=== PATIENT | female | born 1985 | race Two or more races ===

== ENCOUNTER 2018-08-03 15:33 | Emergency (ER) | payer OTHER ==
[2018-08-03 15:39] VITALS: BMI 23.2
[2018-08-03] MEDS ORDERED: SODIUM CHLORIDE 1,000 ML IV STA (16:20)
[2018-08-03] MEDS ORDERED: ONDANSETRON 4 MG/2 ML VIAL IVPUSH ONE (16:20)
[2018-08-03] MEDS ORDERED: KETOROLAC TROMETHAMINE 30 MG/1 ML VIAL IVPUSH STA (16:21)
[2018-08-03] MEDS ORDERED: ONDANSETRON 4 MG/2 ML VIAL ONE (16:28)
[2018-08-03] MEDS ORDERED: KETOROLAC TROMETHAMINE 30 MG/1 ML VIAL ONE (16:28)
[2018-08-03 17:10] LABS: BASO % 0.4 % (0-2.0); EOS % 0.1 % (0-4.5); HEMATOCRIT 36.8 % (32.4-45.2); HEMOGLOBIN 13.2 GM/dL (10.7-15.3); MCH 33.3 pg (25.7-33.7); MEAN CELL VOLUME 92.6 fl (80-96); MONO % 5.3 % (3.8-10.2); NEUT % 73.2 % (42.8-82.8); PLATELET COUNT 135 K/MM3 (134-434); RBC 3.98 M/mm3 (3.60-5.2); WHITE BLOOD COUNT 8.6 K/mm3 (4.0-10.0)
--- NOTE | 2018-08-03 17:32 | PDOC ---
History of Present Illness - General Chief Complaint: Pain Stated Complaint: ABD/VOMITING Time Seen by Provider: 08/03/18 15:53 History Source: Patient Exam Limitations: No Limitations - History of Present Illness Travel History: No Initial Comments: 08/03/18 17:07 32-year-old female presents to the ED with complaints of upper periumbilical cramping along with nausea and vomiting for one week. Patient also states had a fever of 102.3 last night. Patient states 3 weeks ago taken the plan B pill secondary to positive of 5 weeks. Patient denies any complications from taking the pill. Patient has no urinary complaints, complaints of back pain , headache, throat pain, recent travel, recent illness. 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 Timing/Duration: reports: intermittent Quality: reports: mild, cramping Abdominal Pain Onset Location: reports: periumbilical (upper) Pain Radiation: reports: no radiation Activities at Onset: reports: none Aggravating Factors: improves with: None Alleviating Factors: improves with: None Past History - Travel Traveled outside of the country in the last 30 days: No Close contact w/someone who was outside of country & ill: No - Past Medical History Allergies/Adverse Reactions: Allergies Allergy/AdvReac Type Severity Reaction Status Date / Time amoxicillin Allergy Verified 08/03/18 15:39 Home Medications: Ambulatory Orders NK [No Known Home Medication] 08/03/18 COPD: No - Suicide/Smoking/Psychosocial Hx Smoking History: Never smoked Patient Lives Alone: No Lives with/in: spouse/SO Review of Systems - Review of Systems Able to Perform ROS?: Yes Constitutional: Yes: Weakness HEENTM: No: Symptoms Reported Respiratory: No: Symptoms reported Cardiac (ROS): No: Symptoms Reported ABD/GI: Yes: Diarrhea, Nausea, Poor Appetite, Poor Fluid Intake, Vomiting, Abdominal cramping : No: Symptoms Reported Musculoskeletal: No: Symptoms Reported Integumentary: No: Symptoms Reported Neurological: No: Symptoms reported Hematologic/Lymphatic: No: Symptoms Reported *Physical Exam - Vital Signs Last Vital Signs Temp Pulse Resp BP Pulse Ox 97.9 F 74 18 102/70 99 08/03/18 15:37 08/03/18 15:37 08/03/18 15:37 08/03/18 15:37 08/03/18 15:37 - Physical Exam General Appearance: Yes: Nourished, Appropriately Dressed. No: Apparent Distress HEENT: positive: EOMI, JEREMIAH, TMs Normal, Pharynx Normal. negative: Pale Conjunctivae Neck: positive: Supple Respiratory/Chest: positive: Lungs Clear, Normal Breath Sounds. negative: Respiratory Distress, Accessory Muscle Use Cardiovascular: positive: Regular Rhythm, Regular Rate. negative: Murmur Gastrointestinal/Abdominal: positive: Soft, Tenderness (upper periumbi) Musculoskeletal: negative: CVA Tenderness Extremity: positive: Normal Capillary Refill Integumentary: positive: Normal Color, Warm, Moist Neurologic: positive: Motor Strength 5/5 (ambulatory) Moderate Sedation - Procedure Monitoring Vital Signs: Procedure Monitoring Vital Signs Temperature 97.9 F 08/03/18 15:37 Pulse Rate 74 08/03/18 15:37 Respiratory Rate 18 08/03/18 15:37 Blood Pressure 102/70 08/03/18 15:37 O2 Sat by Pulse Oximetry (%) 99 08/03/18 15:37 ED Treatment Course - LABORATORY CBC & Chemistry Diagram: 08/03/18 16:58 08/03/18 16:58 - ADDITIONAL ORDERS Additional order review: 08/03/18 16:58 RBC 3.98 MCV 92.6 MCHC 36.0 RDW 13.0 MPV 8.0 Neutrophils % 73.2 Lymphocytes % 21.0 Monocytes % 5.3 Eosinophils % 0.1 Basophils % 0.4 - Medications Given in the ED: ED Medications Discontinued Medications Generic Name Dose Route Start Last Admin Trade Name Freq PRN Reason Stop Dose Admin Sodium Chloride 1,000 mls @ 1,000 mls/hr 08/03/18 16:20 08/03/18 16:40 Normal Saline - IV 08/03/18 17:19 1,000 mls/hr ASDIR STA Administration Ketorolac Tromethamine 30 mg 08/03/18 16:21 08/03/18 16:40 Toradol Injection - IVPUSH 08/03/18 16:22 30 mg ONCE STA Administration Ondansetron HCl 4 mg 08/03/18 16:20 08/03/18 16:40 Zofran Injection IVPUSH 08/03/18 16:21 4 mg ONCE ONE Administration Medical Decision Making - Medical Decision Making 08/03/18 17:20 CC: upper abd pain with n/v d x 1 week, sub fever of 102.3 yesterday, no meds taken Exam: upper periumbilical tenderness, no ruq tenderness Plan: labs, urine, ivf, toradol and zofran 08/03/18 17:42 Laboratory Tests 08/03/18 08/03/18 16:58 16:58 WBC 8.6 Hgb 13.2 Hct 36.8 Neutrophils % 73.2 Sodium 138 Potassium 4.0 Chloride 108 H Carbon Dioxide 24 Anion Gap 6 L BUN 10 Creatinine 0.5 L Random Glucose 70 L Calcium 8.4 L Magnesium 2.2 Total Bilirubin 0.5 AST 14 L ALT 17 Alkaline Phosphatase 45 Total Protein 6.4 Albumin 3.6 Lipase 158 08/03/18 17:43 d5 ns ordered for glucose of 70. pt states feeling somewhat better. urine collection pending
[2018-08-03 17:35] LABS: ALBUMIN 3.6 g/dl (3.4-5.0); ALK PHOS 45 U/L (45-117); ANION GAP 6 MMOL/L (8-16); BILIRUBIN,TOTAL 0.5 mg/dL (0.2-1); BLOOD UREA NITROGEN 10 mg/dL (7-18); CALCIUM 8.4 mg/dL (8.5-10.1); CHLORIDE 108 mmol/L (98-107); CO2 24 mmol/L (21-32); CREATININE 0.5 mg/dL (0.55-1.3); GLUCOSE,RANDOM 70 mg/dL (74-106); LIPASE 158 U/L (73-393); MAGNESIUM 2.2 mg/dL (1.8-2.4); SGOT/AST 14 U/L (15-37); SGPT/ALT 17 U/L (13-61); SODIUM 138 mmol/L (136-145); TOT PROT 6.4 g/dl (6.4-8.2)
[2018-08-03] MEDS ORDERED: DEXTROSE 5%-NORMAL SALINE 1,000 ML IV ONE (17:42)
[2018-08-03 18:59] LABS: HCG,QUALITATIVE URINE Positive
[2018-08-03 19:01] LABS: URINE APPEARANCE SLCLOUDY; URINE BILIRUBIN NEGATIVE (<2.0 mg/dL); URINE COLOR STRAW; URINE GLUCOSE (UA) 3+ (NEGATIVE); URINE KETONE 1+ (NEGATIVE); URINE LEUK ESTERASE 1+ (NEGATIVE); URINE NITRITE NEGATIVE (NEGATIVE); URINE PROTEIN NEGATIVE (NEGATIVE); URINE UROBILINOGEN NEGATIVE mg/dL (0.2-1.0)
[2018-08-03 19:12] LABS: EPI CELLS MODERATE /HPF (FEW)
[2018-08-03] MEDS ORDERED: MAG HYDROX/AL HYDROX/SIMETH 30 ML UNIT-DOSE CUP PO ONE (19:26)
[2018-08-03] MEDS ORDERED: FAMOTIDINE 20 MG/50 ML IVPB 20 MG/50 ML MG IVPB ONE ×2 (19:26→20:13)
[2018-08-03] MEDS ORDERED: MAG HYDROX/AL HYDROX/SIMETH 30 ML UNIT-DOSE CUP ONE (20:13)
--- NOTE | 2018-08-03 20:50 | PDOC ---
*Physical Exam - Vital Signs Last Vital Signs Temp Pulse Resp BP Pulse Ox 97.9 F 74 18 102/70 99 08/03/18 15:37 08/03/18 15:37 08/03/18 15:37 08/03/18 15:37 08/03/18 15:37 ED Treatment Course - LABORATORY CBC & Chemistry Diagram: 08/03/18 16:58 08/03/18 16:58 - ADDITIONAL ORDERS Additional order review: Laboratory Results 08/03/18 08/03/18 18:40 16:58 Sodium 138 Potassium 4.0 Chloride 108 H Carbon Dioxide 24 Anion Gap 6 L BUN 10 Creatinine 0.5 L Creat Clearance w eGFR > 60 Random Glucose 70 L Calcium 8.4 L Magnesium 2.2 Total Bilirubin 0.5 AST 14 L ALT 17 Alkaline Phosphatase 45 Total Protein 6.4 Albumin 3.6 Lipase 158 Urine Color Straw Urine Appearance Slcloudy Urine pH 6.0 Ur Specific [place] 1.014 Urine Protein Negative Urine Glucose (UA) 3+ H Urine Ketones 1+ H Urine Blood 1+ H Urine Nitrite Negative Urine Bilirubin Negative Urine Urobilinogen Negative Ur Leukocyte Esterase 1+ H Urine WBC (Auto) 11 Urine RBC (Auto) 2 Ur Epithelial Cells Moderate Urine HCG, Qual Positive 08/03/18 16:58 RBC 3.98 MCV 92.6 MCHC 36.0 RDW 13.0 MPV 8.0 Neutrophils % 73.2 Lymphocytes % 21.0 Monocytes % 5.3 Eosinophils % 0.1 Basophils % 0.4 - Medications Given in the ED: ED Medications Discontinued Medications Generic Name Dose Route Start Last Admin Trade Name Freq PRN Reason Stop Dose Admin Al Hydroxide/Mg Hydroxide 30 ml 08/03/18 19:26 08/03/18 20:18 Mylanta Oral Suspension - PO 08/03/18 19:27 30 ml ONCE ONE Administration Sodium Chloride 1,000 mls @ 1,000 mls/hr 08/03/18 16:20 08/03/18 16:40 Normal Saline - IV 08/03/18 17:19 1,000 mls/hr ASDIR STA Administration Dextrose/Sodium Chloride 1,000 mls @ 1,000 mls/hr 08/03/18 17:42 08/03/18 18: 00 D5-Ns - IV 08/03/18 18:41 1,000 mls/hr ONCE ONE Administration Famotidine/Sodium Chloride 20 mg in 50 mls @ 100 mls/hr 08/03/18 19:26 20:18 Pepcid 20 Mg Premixed Ivpb - IVPB 08/03/18 19:55 100 mls/hr ONCE ONE Administration Ketorolac Tromethamine 30 mg 08/03/18 16:21 08/03/18 16:40 Toradol Injection - IVPUSH 08/03/18 16:22 30 mg ONCE STA Administration Ondansetron HCl 4 mg 08/03/18 16:20 08/03/18 16:40 Zofran Injection IVPUSH 08/03/18 16:21 4 mg ONCE ONE Administration Medical Decision Making - Medical Decision Making Patient signed out to me by INSECTICIDE SUPERVISOR Lucille, pending results of UA UA appears contaminated; no sign of infection, glucosuria noted - explained to patient, advised f/u with PCP UCG positive - patient just had recent termination of 3 weeks ago ( took pills), is not having any lower abd pain, unusual vag discharge or vag bleeding; patient is due for follow-up with her NURSE LDR in 4 days when she will have repeat ultrasound done On reassessment, patient mentions still feeling a bit queasy in upper abdomen Patient had some food and was given Pepcid and Maalox Mentions feeling better after meds given Stable for dc 08/03/18 20:44 *DC/Admit/Observation/Transfer Diagnosis at time of Disposition: Upper abdominal pain - Discharge Dispostion Disposition: HOME Condition at time of disposition: Improved Decision to Admit order: No - Referrals - Patient Instructions Printed Discharge Instructions: DI for Epigastric Pain Additional Instructions: Thank you for choosing [facility]. It was a pleasure taking care of you. Possibly your symptoms are related to gastritis You can try taking Pepcid 20 mg daily to help with symptoms (available OTC). You can also try Mylanta to see if it helps Avoid NSAIDs like Motrin as they make your symptoms worse Please follow-up with your PCP for further evaluation Also be sure to follow-up with your NURSE LDR for pelvic ultrasound Return to the Emergency Department if your symptoms worsen or persist or have other concerning symptoms. - Post Discharge Activity
[2018-08-03 22:06] VITALS: BP 110/78; PULSE 88; TEMP 98.5
== END 2018-08-03 20:55 | disposition home or self-care (01) ==
LOC: JER 15:33
PROC: 3E0337Z Introduction of Electrolytic and Water Balance Substance into Peripheral Vein, Percutaneous Approach (ICD-10-PCS; principal; 2018-08-03)
PROC: 3E033GC Introduction of Other Therapeutic Substance into Peripheral Vein, Percutaneous Approach (ICD-10-PCS; 2018-08-03)
PROC: 3E033GC Introduction of Other Therapeutic Substance into Peripheral Vein, Percutaneous Approach (ICD-10-PCS; 2018-08-03)
PROC: 3E0333Z Introduction of Anti-inflammatory into Peripheral Vein, Percutaneous Approach (ICD-10-PCS; 2018-08-03)
DX: K29.70 Gastritis, unspecified, without bleeding (principal); E72.51 Non-ketotic hyperglycinemia
CPT/HCPCS: 36415; 80053; 81003; 81015; 83690; 83735; 84703; 85025; 87086; 96361; 96365; 96375; 99282-25; J7030

== ENCOUNTER 2019-03-02 21:50 | Inpatient (IN) | payer OTHER ==
[2019-03-02] MEDS ORDERED: AMPICILLIN - 2 GM in SODIUM CHLORIDE 100 ML IVPB ONE (22:46)
[2019-03-02] MEDS ORDERED: BUTORPHANOL TARTRATE 1 MG/ML VIAL IVPB ONE (22:47)
--- NOTE | 2019-03-02 22:51 | HP ---
Past Medical History - Admission Chief Complaint: Uterine contractions History of Present Illness: 33yo @ 39+wks here with SROM, contractions. No VB. +FM PNC @ [facility], no records available Preg c/b Rh negative, AMA History Source: Patient Limitations to Obtaining History: No Limitations - Past Medical History PLASTERER ROUGH: No: Alzheimer's, CVA, Dementia, Migraine, Multiple Sclerosis, Peripheral Neuropathy, Parkinson's, Seizure, Syncope, TIA, Vertigo, Other Cardiovascular: No: AFIB, Aneurysm, Aortic Insufficiency, Aortic Stenosis, CAD, CHF, Deep Vein Thrombosis, HTN, Hyperlipdemia, AR, Mitral Insufficiency, Mitral Stenosis, Murmur, Pulmonary Hypertension, Other Gastrointestinal: No: Ascites, Cancer, Constipation, Crohn's Disease, Diverticulitis, Diverticulosis, Esophageal Varices, Gastritis, GERD, GI Bleed, Hemorrhoids, Hiatal Hernia, Inflamatory Bowel Disease, Irritable Bowel Disease, Pancreatitis, Peptic Ulcer Disease, Ulcerative Colitis, Other Hepatobiliary: No: Cirrhosis, Cholelithiasis, Cholecystitis, Choledocholithiasis , Hepatitis A, Hepatitis B, Hepatitis C, Other Renal/: No: Renal Failure, Renal Inusuff, BPH, Cancer, Hematuria, Hemodialysis , Neurogenic Bladder, Renal Calculi, UTI, Other Reproductive: No: Ectopic , Endometriosis, Fibroids, PID, Polycystic Ovary Syndrome, Postmenopausal, Other ...: 2 ...Para: 1 ...Term: 1 Additional OB History: Rh negative Heme/Onc: Yes: Anemia Infectious Disease: No: AIDS, C-Diff, Herpes Zoster, HIV, MRSA, STD's, Tuberculosis, VREF, Other Psych: No: Addictions, Anxiety, Bipolar, Depression, Panic, Psychosis, Schizophrenia, Other Musculoskeletal: No: Bursitis, Chronic low back pain, Hemiparesis, Hemiplegia, Osteoarthritis, Paraplegia, Other Rheumatology: No: Fibromyalgia, Gout, Lupus, Rheumatoid Arthritis, Sarcoidosis, Vasculitis, Other ENT: No: Allergic Rhinitis, Sinusitis, Other Endocrine: No: Azar's Disease, Noris's Disease, Diabetes Insipidus, Diabetes Mellitus, Hyperparathyroidism, Hyperthyroidism, Hypothyroidism, Osteopenia, SIADH, Other - Past Surgical History Past Surgical History: Yes: None Hx Myomectomy: No Hx Transabdominal Cerclage: No - Smoking History Smoking history: Never smoked Have you smoked in the past 12 months: No - Alcohol/Substance Use Hx Alcohol Use: No History of Substance Use: reports: None - Social History Usual Living Arrangement: Yes: With Spouse ADL: Independent History of Recent Travel: No Home Medications - Allergies Allergies/Adverse Reactions: Allergies Allergy/AdvReac Type Severity Reaction Status Date / Time amoxicillin Allergy Intermediate Hives Verified 03/02/19 22:27 - Home Medications Home Medications: Ambulatory Orders Ferrous Sulfate [Iron] 325 mg PO BID 03/02/19 Vitamins (Sjr) - 1 tab PO DAILY 03/02/19 Physical Exam - Maternity Constitutional: Yes: Well Nourished, No Distress, Calm - Abdominal Exam/OB Number of Fetuses: Single Presentation: Vertex Contractions: Yes Regularity: Irregular Intensity: Mild/Mod Monitor Mode: External Heart Rate Location: [facility] Category: I Accelerations: Non-Uniform Decelerations: None - Vaginal Exam/OB Vaginal Bleediing: No Dilatation (cm): 3-4 Effacement (%): 100 Amniotic Membrane Status: Ruptured Nitrazine Test: Positive Amniotic Fluid: Yes: Clear Presentation: Vertex/Position Station: -2 - Physical Exam Edema: No Assessment/Plan 35to @ 39+wks here in early labor Admit to L&D NPO, IVFs Vanc for GBS given unknown status and PCN allergy Stadol/epidural PNL, Urine drug screen (given no PNC with providers here/no records available to show any PNC for ) Cat 1 tracing Anticipate eventual Elizabeth Lux MD
[2019-03-02 22:52] LABS: BASO % 1.3 % (0-2.0); EOS % 0.6 % (0-4.5); HEMATOCRIT 38.5 % (32.4-45.2); LYMPH % 18.2 % (8-40); MCH 32.1 pg (25.7-33.7); MCHC 33.8 g/dl (32.0-36.0); MEAN CELL VOLUME 95.1 fl (80-96); MONO % 6.5 % (3.8-10.2); NEUT % 73.4 % (42.8-82.8); PLATELET COUNT 111 K/MM3 (134-434); RBC 4.05 M/mm3 (3.60-5.2); RDW 15.4 % (11.6-15.6); WHITE BLOOD COUNT 11.6 K/mm3 (4.0-10.0)
[2019-03-02] MEDS ORDERED: DEXTROSE 5%-LACTATED RINGERS 1,000 ML IV SCH (23:00)
[2019-03-02 23:07] LABS: INR 0.88 (0.83-1.09); PROTHROMBIN TIME (PATIENT) 10.4 SEC (9.7-13.0)
[2019-03-02] MEDS ORDERED: BUTORPHANOL TARTRATE 1 MG/ML VIAL ONE ×2 (23:07)
[2019-03-02 23:10] LABS: ACTIVATED PTT 24.8 SECONDS (25.2-36.5)
[2019-03-02] MEDS ORDERED: LIDOCAINE HCL 1% PRESERVATIVE FREE - 30ML VIAL ONE (23:19)
[2019-03-02] MEDS ORDERED: OXYTOCIN 20 UNITS in 0.9% NS 20 UNIT/1,000 ML INFUS.BAG IV ONE (23:19)
[2019-03-02 23:22] LABS: MACROCYTOSIS 1+; PLATELET ESTIMATE DECREASED
[2019-03-02] MEDS: VANCOMYCIN 1 GM in D5W (PRE-DOCKED) 1,000 MG/250 ML IVPB ONE (23:30)
[2019-03-03] MEDS ORDERED: LIDO 2%/EPI 1:200000 PRESRVFRE (20 ML SDVIAL) ONE (00:33)
[2019-03-03] MEDS ORDERED: BUPIVACAINE HCL/PF 2.5 MG/ML - 30 ML VIAL IJ ONE (00:34)
[2019-03-03] MEDS ORDERED: FENTANYL/BUPIVACAINE/NS/PF - PCEA - 50 ML DISP.SYRIN EP ONE (00:46)
[2019-03-03] MEDS ORDERED: NALOXONE HCL 0.4 MG/ML VIAL IVPUSH PRN (00:57)
[2019-03-03] MEDS ORDERED: FENTANYL/BUPIVACAINE/NS/PF - PCEA - 50 ML DISP.SYRIN EP SCH (01:00)
[2019-03-03 01:45] VITALS: BMI 31.5
[2019-03-03 02:00] LABS: COCAINE, UR NEGATIVE ng/ml (CUTOFF=300); METHADONE, UR NEGATIVE ng/ml (CUTOFF=300); OPIATES, URI NEGATIVE ng/ml (CUTOFF=300); PHENCYCLIDINE,URINE NEGATIVE ng/ml (CUTOFF=25); URINE AMPHETAMINES NEGATIVE ng/ml (CUTOFF=500); URINE BARBITURATES NEGATIVE ng/ml (CUTOFF=200); URINE BENZODIAZEPINES NEGATIVE ng/ml (CUTOFF=200)
--- NOTE | 2019-03-03 02:16 | PN ---
Progress Note, Labor Vaginal Exam #1 Labor Exam Date: 03/03/19 Labor Exam Time: 02:15 Heart Rate (range): Cat I Dilatation: 8 Effacement (%): 100 Amniotic Membrane Status: Ruptured Presentation: Vertex/Position Station: 0 Remarks: Resting comfortably after epidural Cat I tracing If ctx space or no progress in an hour, start pitocin Anticipate Elizabeth Lux MD
[2019-03-03] MEDS ORDERED: ELECTROLYTE-148 SOLN 1,000 ML IV SCH (02:30)
[2019-03-03 02:38] LABS: EPI CELLS 10.3 /HPF (0-5/HPF); HYALINE CASTS 23 /lpf (0-8); URINE APPEARANCE CLEAR; URINE BACTERIA 28.1 /hpf (NEGATIVE); URINE BILIRUBIN NEGATIVE (NEGATIVE); URINE COLOR YELLOW; URINE GLUCOSE (UA) 1+ (NEGATIVE); URINE KETONE 1+ (NEGATIVE); URINE LEUK ESTERASE NEGATIVE (NEGATIVE); URINE NITRITE NEGATIVE (NEGATIVE); URINE PROTEIN 2+ (NEGATIVE); URINE RBC 6 /hpf (0-4); URINE WBC 2 /hpf (0-5)
--- NOTE | 2019-03-03 05:21 | PN ---
Progress Note, Labor Vaginal Exam #2 Labor Exam Date: 03/03/19 Labor Exam Time: 05:20 Heart Rate (range): Cat I Dilatation: 10 Effacement (%): 100 Amniotic Membrane Status: Ruptured Presentation: Vertex/Position Station: +1 Remarks: Starting to feel pressure Will start pushing Anticipate SAMANTHA Lux MD
[2019-03-03] MEDS: OXYTOCIN 20 UNITS in 0.9% NS 20 UNIT/1,000 ML INFUS.BAG IV SCH ×2 (05:55→08:10)
[2019-03-03] MEDS ORDERED: BENZOCAINE 28 GM HEMORRHOIDAL OINTMENT TP PRN (06:07)
[2019-03-03] MEDS ORDERED: WITCH HAZEL 50% (TUCKS) 40 PAD/JAR PAD TP PRN (06:07)
[2019-03-03] MEDS ORDERED: METHYLERGONOVINE MALEATE 0.2 MG/1 ML AMP IM PRN (06:07)
[2019-03-03] MEDS ORDERED: BISACODYL 10 MG SUPP.RECT RC PRN (06:07)
--- NOTE | 2019-03-03 06:07 | PN ---
Delivery - Delivery Vaginal Delivery: Spontaneous Type of Anesthesia: Epidural Episiotomy/Laceration: Midline, 1st degree EBL (cc): 250 Delivery, Single - Stages of Labor Placenta: Yes: Spontaneous - Condition of Metal Engraver/Cooling Tower Technician Present: No Gender: Male Position: Left, OA - 5 Minutes Total Score: 9 1 Minute Total Score: 9 - [place] Feeding Plan Initial Plan: Elected not to breastfeed exclusively throughout hospitalization Remarks - Remarks Remarks: of VMI from JONE position over intact perineum. Epidural anesthesia. Spontaneous delivery of anterior shoulder and remaining body. No nuchal. No meconium. Cord clamped and cut. Infant placed on maternal abdomen. Weight pending to allow sufficient skin to skin. Apgars 9/9. Spontaneous delivery of intact placenta with 3VC. Fundus firm. Perineum inspected, first degree laceration repaired with 2-0 chromic. Hemostasis. EBL 250ml. Mother and baby doing well. Jayde Lux Md
[2019-03-03] MEDS ORDERED: ACETAMINOPHEN 325 MG TABLET (FP) ONE (06:38)
[2019-03-03] MEDS: ACETAMINOPHEN 325 MG TABLET (FP) PO PRN ×3 (06:40→17:46)
[2019-03-03] MEDS: PRENATAL VITAMINS W/ FOLIC ACID TABLET (FP) PO SCH (09:51)
[2019-03-03] MEDS: IBUPROFEN 600 MG TABLET (FP) PO PRN (21:01)
[2019-03-04] MEDS: ACETAMINOPHEN 325 MG TABLET (FP) PO PRN ×4 (05:32→23:57)
[2019-03-04] MEDS: IBUPROFEN 600 MG TABLET (FP) PO PRN ×4 (05:32→23:57)
--- NOTE | 2019-03-04 07:57 | PN ---
Post Progress Note - Subjective Subjective: ambulating, voiding, passing flatus, tolerating PO, breast feeding. Post Day: 1 Type of Delivery: Vital Signs: Vital Signs Temperature 98.2 F 03/03/19 21:57 Pulse Rate 77 03/03/19 21:57 Respiratory Rate 18 03/03/19 21:57 Blood Pressure 117/75 03/03/19 21:57 O2 Sat by Pulse Oximetry (%) 100 03/03/19 06:40 Breast Exam: Yes: Other (deferred) Uterus: Yes: Fundus Firm Abdomen/GI: Yes: Abdomen soft Lochia, amount: Small Extremities: Yes: Calves non-tender Activity: Ambulating - Labs Labs: CBC WBC 11.6 K/mm3 (4.0-10.0) H 03/02/19 22:25 RBC 4.05 M/mm3 (3.60-5.2) 03/02/19 22:25 Hgb 13.0 GM/dL (10.7-15.3) 03/02/19 22:25 Hct 38.5 % (32.4-45.2) 03/02/19 22:25 MCV 95.1 fl (80-96) 03/02/19 22:25 MCH 32.1 pg (25.7-33.7) 03/02/19 22:25 MCHC 33.8 g/dl (32.0-36.0) 03/02/19 22:25 RDW 15.4 % (11.6-15.6) D 03/02/19 22:25 Plt Count 111 K/MM3 (134-434) L 03/02/19 22:25 MPV 9.0 fl (7.5-11.1) D 03/02/19 22:25 Absolute Neuts (auto) 8.5 K/mm3 (1.5-8.0) H 03/02/19 22:25 Neutrophils % 73.4 % (42.8-82.8) 03/02/19 22:25 Neutrophils % (Manual) 56.3 % (42.8-82.8) 03/02/19 22:25 Band Neutrophils % 12.5 % 03/02/19 22:25 Lymphocytes % 18.2 % (8-40) 03/02/19 22:25 Lymphocytes % (Manual) 24.0 % (8-40) 03/02/19 22:25 Monocytes % 6.5 % (3.8-10.2) 03/02/19 22:25 Monocytes % (Manual) 5 % (3.8-10.2) 03/02/19 22:25 Eosinophils % 0.6 % (0-4.5) D 03/02/19 22:25 Eosinophils % (Manual) 0.0 % (0-4.5) 03/02/19 22:25 Basophils % 1.3 % (0-2.0) D 03/02/19 22:25 Basophils % (Manual) 0.0 % (0-2.0) 03/02/19 22:25 Myelocytes % (Man) 1 % (0-2) 03/02/19 22:25 Promyelocytes % (Man) 0 % (0-2) 03/02/19 22:25 Blast Cells % (Manual) 0 % (0-0) 03/02/19 22:25 Nucleated RBC % 0 % (0-0) 03/02/19 22:25 Metamyelocytes 0 % (0-2) 03/02/19 22:25 Platelet Estimate Decreased 03/02/19 22:25 Macrocytosis 1+ 03/02/19 22:25 Assessment/Plan PPD # 1, limited documentation available, in stable condition. Patient reports care at [facility] and [place] here due to logistical reasons -Continue PP care -Efforts to obtain summary -Rh negative and Rhogam ordered -Anticipate D/C home tomorrow.
[2019-03-04 08:12] LABS: BASO % 0.2 % (0-2.0); EOS % 0.8 % (0-4.5); HEMATOCRIT 29.2 % (32.4-45.2); MCH 32.4 pg (25.7-33.7); MCHC 34.1 g/dl (32.0-36.0); MEAN CELL VOLUME 94.9 fl (80-96); MEAN PLT VOLUME 8.8 fl (7.5-11.1); MONO % 5.9 % (3.8-10.2); NEUT % 75.1 % (42.8-82.8); PLATELET COUNT 77 K/MM3 (134-434); RBC 3.08 M/mm3 (3.60-5.2); RDW 15.6 % (11.6-15.6); WHITE BLOOD COUNT 12.6 K/mm3 (4.0-10.0)
[2019-03-04] MEDS: BENZOCAINE 20% 57 GM BOTTLE TP PRN (09:32)
[2019-03-04] MEDS: PRENATAL VITAMINS W/ FOLIC ACID TABLET (FP) PO SCH (09:34)
[2019-03-04] MEDS ORDERED: DIPHTH,PERTUSS(ACELL),TET 0.5 ML DISP.SYRIN IM ONE (10:30)
[2019-03-04 12:58] LABS: ALBUMIN 2.8 g/dl (3.4-5.0); BILIRUBIN,TOTAL 0.4 mg/dL (0.2-1); BLOOD UREA NITROGEN 5.3 mg/dL (7-18); CREATININE 0.7 mg/dL (0.55-1.3); POTASSIUM 3.5 mmol/L (3.5-5.1)
[2019-03-04 20:41] VITALS: PULSE 83
[2019-03-04] MEDS ORDERED: SENNOSIDES/DOCUSATE COMBO (SENNA PLUS) TABLET (UD) PO PRN (22:00)
--- NOTE | 2019-03-05 08:48 | PN ---
Post Progress Note - Subjective Subjective: no complains Post Day: 2 Type of Delivery: Vital Signs: Vital Signs Temperature 98.2 F 03/04/19 20:37 Pulse Rate 83 03/04/19 20:37 Respiratory Rate 18 03/04/19 20:37 Blood Pressure 112/69 03/04/19 20:37 O2 Sat by Pulse Oximetry (%) 100 03/03/19 06:40 Breast Exam: Yes: Soft, Other (BF). No: Engorged Uterus: Yes: Fundus Firm, Fundus below umbilicus, Non-tender Lochia: Yes: Rubra Lochia, amount: Moderate Extremities: Yes: Calves non-tender, Edema (Rt foot ) Perineum: Yes: Intact Activity: Ambulating - Labs Labs: CBC WBC 12.6 K/mm3 (4.0-10.0) H 03/04/19 07:35 RBC 3.08 M/mm3 (3.60-5.2) L 03/04/19 07:35 Hgb 10.0 GM/dL (10.7-15.3) L 03/04/19 07:35 Hct 29.2 % (32.4-45.2) L D 03/04/19 07:35 MCV 94.9 fl (80-96) 03/04/19 07:35 MCH 32.4 pg (25.7-33.7) 03/04/19 07:35 MCHC 34.1 g/dl (32.0-36.0) 03/04/19 07:35 RDW 15.6 % (11.6-15.6) 03/04/19 07:35 Plt Count 77 K/MM3 (134-434) L D 03/04/19 07:35 MPV 8.8 fl (7.5-11.1) 03/04/19 07:35 Absolute Neuts (auto) 9.4 K/mm3 (1.5-8.0) H 03/04/19 07:35 Neutrophils % 75.1 % (42.8-82.8) 03/04/19 07:35 Neutrophils % (Manual) 56.3 % (42.8-82.8) 03/02/19 22:25 Band Neutrophils % 12.5 % 03/02/19 22:25 Lymphocytes % 18.0 % (8-40) 03/04/19 07:35 Lymphocytes % (Manual) 24.0 % (8-40) 03/02/19 22:25 Monocytes % 5.9 % (3.8-10.2) 03/04/19 07:35 Monocytes % (Manual) 5 % (3.8-10.2) 03/02/19 22:25 Eosinophils % 0.8 % (0-4.5) 03/04/19 07:35 Eosinophils % (Manual) 0.0 % (0-4.5) 03/02/19 22:25 Basophils % 0.2 % (0-2.0) 03/04/19 07:35 Basophils % (Manual) 0.0 % (0-2.0) 03/02/19 22:25 Myelocytes % (Man) 1 % (0-2) 03/02/19 22:25 Promyelocytes % (Man) 0 % (0-2) 03/02/19 22:25 Blast Cells % (Manual) 0 % (0-0) 03/02/19 22:25 Nucleated RBC % 0 % (0-0) 03/04/19 07:35 Metamyelocytes 0 % (0-2) 03/02/19 22:25 Platelet Estimate Decreased 03/02/19 22:25 Macrocytosis 1+ 03/02/19 22:25 Problem List - Problems (1) care following vaginal delivery Code(s): Z39.2 - ENCOUNTER FOR ROUTINE FOLLOW-UP Assessment/Plan stable pt counselled for anemia discharge today
[2019-03-05] MEDS: IBUPROFEN 600 MG TABLET (FP) PO PRN (11:01)
[2019-03-05] MEDS: ACETAMINOPHEN 325 MG TABLET (FP) PO PRN (11:02)
[2019-03-05] MEDS: BENZOCAINE 20% 57 GM BOTTLE TP PRN (11:04)
[2019-03-05] MEDS: PRENATAL VITAMINS W/ FOLIC ACID TABLET (FP) PO SCH (11:05)
[2019-03-05 15:40] VITALS: BP 113/80; TEMP 98
== END 2019-03-05 13:40 | disposition home or self-care (01) | DRG 560 ==
LOC: JLDR 21:50 → J3W 03-03 08:00
PROVIDERS: ADMIT Obstetrics & Gynecology; ATTEND Obstetrics & Gynecology
PROC: 10E0XZZ Delivery of Products of Conception, External Approach (ICD-10-PCS; principal; 2019-03-03)
PROC: 0HQ9XZZ Repair Perineum Skin, External Approach (ICD-10-PCS; 2019-03-03)
DX: O70.0 First degree perineal laceration during delivery (principal); Z3A.39 39 weeks gestation of pregnancy; O99.02 Anemia complicating childbirth; D64.9 Anemia, unspecified; Z37.0 Single live birth
CPT/HCPCS: 36415; 59409; 80053; 80307; 81003; 85025; 85461; 85610; 85730; 86593; 86762; 86850; 86870; 86900; 86901; 86902; 86999; 87340; 87389; 90715

== ENCOUNTER 2020-04-12 22:36 | Emergency (ER) | payer OTHER ==
[2020-04-12 22:52] VITALS: BP 117/84; PULSE 72; TEMP 97.6; BMI 24.5
--- OUTSIDE RECORDS SUMMARY | 2020-04-12 22:56 | XMS ---
:1985 Author Organization [facility] Support Name Relationship Address Phone UE, UNEMPLOYED Unavailable Unavailable Unavailable UE Unavailable Unavailable Unavailable [facility] Unavailable [phone] [facility] [facility] [address] [place], [place] [id number] ERIC MORRIS MOTHER [address] [place] [address] ERIC MORRIS Mother [address] [place] [address] Re-disclosure Warning The records that you are about to access may contain information from federally- assisted alcohol or drug abuse programs. If such information is present, then the following federally mandated warning applies: This information has been disclosed to you from records protected by federal confidentiality rules (42 CFR part 2). The federal rules prohibit you from making any further disclosure of this information unless further disclosure is expressly permitted by the written consent of the person to whom it pertains or as otherwise permitted by 42 CFR part 2. A general authorization for the release of medical or other information is NOT sufficient for this purpose. The Federal rules restrict any use of the information to criminally investigate or prosecute any alcohol or drug abuse patient.The records that you are about to access may contain highly sensitive health information, the redisclosure of which is protected by Article 27-F of the [facility] Public Health law. If you continue you may haveaccess to information: Regarding HIV / AIDS; Provided by facilities licensed or operated by the [facility] Office of Mental Health; or Provided by the [facility] Office for People With Developmental Disabilities. If such information is present, then the following [facility] mandated warning applies: This information has been disclosed to you from confidential records which are protected by state law. State law prohibits you from making any further disclosure of this information without the specific written consent of the person to whom it pertains, or as otherwise permitted by law. Any unauthorized further disclosure in violation of state law may result in a fine or intermediate sentence or both. A general authorization for the release of medical or other information is NOT sufficient authorization for further disclosure. Insurance Providers Payer name Policy type Policy ID Covered Covered republican's Policy P sukumar / Coverage republican ID relationship to [employer] Inf ormation type d[employer] [id number] SP [id number] P MEDICAID [id number] SP [id number] SELF PAY SP INSURANCE
--- NOTE | 2020-04-12 23:09 | PDOC ---
History of Present Illness - General Chief Complaint: Headache Stated Complaint: EAR PAIN Time Seen by Provider: 04/12/20 23:08 History Source: Patient - History of Present Illness Initial Comments: 04/13/20 01:51 34-year-old female complaining of left ear pain, feeling fullness and popping with pain to the ear and left side of head for the past 4 days. Patient reports that she had similar episodes in the past which caused some dizziness. Symptoms self resolved. Denies nausea, vomiting, vision changes, recent travel. Denies fever/chills. Past History - Medical History Allergies/Adverse Reactions: Allergies Allergy/AdvReac Type Severity Reaction Status Date / Time amoxicillin Allergy Intermediate Hives Verified 03/02/19 22:27 Home Medications: Ambulatory Orders Ferrous Sulfate [Iron] 325 mg PO BID 03/02/19 Vitamins ([facility]) - 1 tab PO DAILY 03/02/19 Ibuprofen 600 mg PO Q6H PRN #30 tablet 03/03/19 Fluticasone Prop 0.05% Nasal [Flonase -] 1 - 2 spray NS BID #1 spray.pump 04/13/20 Ofloxacin Otic [Floxin Otic -] 10 drop OT BID #1 bottle 04/13/20 Asthma: No Cancer: No Cardiac Disorders: No COPD: No Diabetes: No HTN: No Seizures: No Thyroid Disease: No - Reproductive History Is Patient Now?: No (#): 3 Para: 2 Spontaneous : 0 - Immunization History Immunization Up to Date: No - Psycho-Social/Smoking History Smoking History: Never smoked Have you smoked in the past 12 months: No - Substance Abuse Hx (Audit-C & DAST Scrn) How often the patient has a drink containing alcohol: Monthly or less Score: In Men: 4 or > Positive; In Women: 3 or > Positive: 1 Screen Result (Pos requires Nsg. Audit-10AR): Negative *Physical Exam - Vital Signs Last Vital Signs Temp Pulse Resp BP Pulse Ox 97.6 F 72 20 117/84 97 04/12/20 22:47 04/12/20 22:47 04/12/20 22:47 04/12/20 22:47 04/12/20 22:47 - Physical Exam General Appearance: Yes: Appropriately Dressed HEENT: positive: Other (left tm with effusion, erythema to left ear canal. pain to the ear with pulling on the lobe. ). negative: Nasal Congestion, Rhinorrhea Respiratory/Chest: positive: Lungs Clear, Normal Breath Sounds Integumentary: positive: Normal Color, Dry, Warm Neurologic: positive: atm mechanic II-XII NML intact, Fully Oriented, Alert, Normal Mood/Affect, Normal Response, Motor Strength 5/5, Other (no dannielle hyman pike) ED Progress Note - Progress Note Progress Note: 04/13/20 02:48 A: otitis externa; P: ibuprofen flonase ofloxacin ENT referral Discharge - Discharge Information Problems reviewed: Yes Clinical Impression/Diagnosis: Acute effusion of left ear Otitis externa Qualifiers: Otitis externa type: unspecified type Chronicity: acute Laterality: left Qualified Code(s): H60.502 - Unspecified acute noninfective otitis externa, left ear Disposition: HOME - Additional Discharge Information Prescriptions: Fluticasone Prop 0.05% Nasal [Flonase -] 1 - 2 spray NS BID #1 spray.pump Ofloxacin Otic [Floxin Otic -] 10 drop OT BID #1 bottle - Follow up/Referral Referrals: Werner Traylor MD [Staff Physician] - Call tomorrow - Patient Discharge Instructions Patient Printed Discharge Instructions: Otitis Externa Additional Instructions: Take Tylenol or ibuprofen every 6 hours as needed for pain. Use Flonase as prescribed Use ofloxacin as prescribed Return to the emergency room for any worsening symptoms it is important that you follow-up with the ear nose throat doctor. A referral has been given to you - Post Discharge Activity Work/Back to School Note: Back to Work
[2020-04-13 00:19] LABS: EPI CELLS 27 /uL (0-25.1); HYALINE CASTS 0 /uL (0-3.1); URINE APPEARANCE CLEAR; URINE BACTERIA 282 /uL (0-1359); URINE BILIRUBIN NEGATIVE (NEGATIVE); URINE COLOR YELLOW; URINE GLUCOSE (UA) NEGATIVE (NEGATIVE); URINE KETONE NEGATIVE (NEGATIVE); URINE LEUK ESTERASE TRACE (NEGATIVE); URINE NITRITE NEGATIVE (NEGATIVE); URINE PROTEIN NEGATIVE (NEGATIVE); URINE RBC 2 /uL (0-23.9); URINE UROBILINOGEN 0.2 mg/dL (0.2-1.0); URINE WBC 16 /uL (0-25.8)
[2020-04-13] MEDS ORDERED: IBUPROFEN 600 MG TABLET (FP) PO ONE ×2 (00:20→00:27)
[2020-04-13] MEDS ORDERED: MECLIZINE HCL 25 MG TABLET (FP) PO ONE (00:20)
[2020-04-13] MEDS ORDERED: MECLIZINE HCL 25 MG TABLET (FP) ONE (00:26)
== END 2020-04-13 02:43 | disposition home or self-care (01) ==
LOC: JER 22:36
DX: H65.02 Acute serous otitis media, left ear (principal); H60.502 Unspecified acute noninfective otitis externa, left ear
CPT/HCPCS: 81003; 84703; 99283-25

== ENCOUNTER 2021-01-17 16:54 | Emergency (ER) | payer OTHER ==
[2021-01-17 17:38] VITALS: BP 108/73; PULSE 87; TEMP 98.2; BMI 27.9
== END 2021-01-17 19:40 | disposition left against medical advice (07) ==
LOC: JER 16:54
DX: O26.851 Spotting complicating pregnancy, first trimester (principal); Z3A.01 Less than 8 weeks gestation of pregnancy
CPT/HCPCS: 99281-25

== ENCOUNTER 2021-02-01 16:14 | Emergency (ER) | payer OTHER ==
[2021-02-01 16:23] VITALS: TEMP 97; BMI 27.9
[2021-02-01] MEDS ORDERED: ONDANSETRON 4 MG/2 ML VIAL IVPUSH ONE (16:48)
[2021-02-01] MEDS ORDERED: SODIUM CHLORIDE 1,000 ML IV STA (16:53)
[2021-02-01] MEDS ORDERED: ONDANSETRON 4 MG/2 ML VIAL ONE (17:13)
[2021-02-01] MEDS ORDERED: RHO(D) IMMUNE GLOBULIN 1,500 UNIT DISP.SYRIN IM ONE (17:26)
[2021-02-01 17:58] LABS: EOS % 0.4 % (0-4.5); HEMATOCRIT 40.2 % (32.4-45.2); MCH 31.4 pg (25.7-33.7); MCHC 34.9 g/dl (32.0-36.0); MEAN PLT VOLUME 8.5 fl (7.5-11.1); MONO % 6.4 % (3.8-10.2); NEUT % 64.2 % (42.8-82.8); PLATELET COUNT 150 10^3/uL (134-434); RBC 4.46 M/mm3 (3.60-5.2); RDW 12.7 % (11.6-15.6); WHITE BLOOD COUNT 8.8 K/mm3 (4.0-10.0)
[2021-02-01 18:04] LABS: EPI CELLS 19 /uL (0-25.1); HYALINE CASTS 1 /uL (0-3.1); PH,URINE 5.5 (5.0-8.0); URINE APPEARANCE CLEAR; URINE BACTERIA 75 /uL (0-1359); URINE BILIRUBIN NEGATIVE (NEGATIVE); URINE COLOR YELLOW; URINE GLUCOSE (UA) NEGATIVE (NEGATIVE); URINE KETONE NEGATIVE (NEGATIVE); URINE LEUK ESTERASE 1+ (NEGATIVE); URINE NITRITE NEGATIVE (NEGATIVE); URINE PROTEIN NEGATIVE (NEGATIVE); URINE RBC 2 /uL (0-23.9); URINE UROBILINOGEN 0.2 mg/dL (0.2-1.0); URINE WBC 26 /uL (0-25.8)
[2021-02-01 21:12] VITALS: BP 117/81; PULSE 87
== END 2021-02-01 21:13 | disposition home or self-care (01) ==
LOC: JERFT 16:14 → JER 16:14 → JERFT 21:13
PROC: 3E023GC Introduction of Other Therapeutic Substance into Muscle, Percutaneous Approach (ICD-10-PCS; principal; 2021-02-01)
PROC: 3E033GC Introduction of Other Therapeutic Substance into Peripheral Vein, Percutaneous Approach (ICD-10-PCS; principal; 2021-02-01)
DX: O20.9 Hemorrhage in early pregnancy, unspecified (principal); O23.591 Infection of other part of genital tract in pregnancy, first trimester; Z3A.01 Less than 8 weeks gestation of pregnancy
CPT/HCPCS: 36415; 76817-TC; 81003; 84702; 85025; 86850; 86900; 86901; 86999; 99284-25; J1561

== ENCOUNTER 2024-10-06 12:41 | Emergency (ER) | payer OTHER ==
[2024-10-06 12:49] VITALS: TEMP 98.1; BMI 22.3
[2024-10-06 14:04] LABS: INR 0.93 (0.83-1.09); PROTHROMBIN TIME (PATIENT) 10.2 SEC (9.7-13.0)
[2024-10-06 14:06] LABS: ACTIVATED PTT 23.3 SECONDS (25.2-36.5)
[2024-10-06] MEDS ORDERED: ACETAMINOPHEN INJECTION 100 ML ONE (14:21)
[2024-10-06] MEDS ORDERED: ACETAMINOPHEN 500 MG TABLET (FP) ONE (14:40)
[2024-10-06] MEDS: ACETAMINOPHEN 500 MG TABLET (FP) PO ONE (14:43)
[2024-10-06] MEDS: ACETAMINOPHEN 1000 MG/100 ML BAG IVPB ONE (14:51)
[2024-10-06 15:16] LABS: CHLORIDE 104 mmol/L (98-107); POTASSIUM 4.3 mmol/L (3.5-5.1); SODIUM 137 mmol/L (136-145)
[2024-10-06 15:20] LABS: ALBUMIN 4.2 g/dl (3.4-5.0); ANION GAP 6 mmol/L (4-13); BLOOD UREA NITROGEN 11.3 mg/dL (7-18); CALCIUM 9.8 mg/dL (8.5-10.1); CO2 27 mmol/L (21-32); GLUCOSE,RANDOM 85 mg/dL (74-106)
[2024-10-06 15:22] LABS: CREATININE 0.6 mg/dL (0.55-1.3); SGOT/AST 18 U/L (15-37); SGPT/ALT 20 U/L (13-61)
[2024-10-06 15:24] LABS: BILIRUBIN,TOTAL 0.5 mg/dL (0.2-1); TOT PROT 7.1 g/dl (6.4-8.2)
[2024-10-06 15:25] LABS: ALK PHOS 72 U/L (45-117)
[2024-10-06 15:43] LABS: HEMATOCRIT 42.7 % (34.1-44.9); MCHC 32.8 g/dl (32.2-35.5); MEAN CELL VOLUME 91.2 fl (79.4-94.8); MEAN PLT VOLUME 10.4 fl (9.4-12.3); PLATELET COUNT 133 x10^3/uL (182-369); RDW 12.5 % (12.2-17.1)
[2024-10-06 15:45] LABS: EPI CELLS >36 /uL (0-25.1); HYALINE CASTS 0 /uL (0-3.1); URINE APPEARANCE CLEAR; URINE BACTERIA >9,000 /uL (0-1359); URINE BILIRUBIN NEGATIVE (NEGATIVE); URINE COLOR YELLOW; URINE GLUCOSE (UA) NEGATIVE (NEGATIVE); URINE KETONE NEGATIVE (NEGATIVE); URINE LEUK ESTERASE 2+ (NEGATIVE); URINE NITRITE NEGATIVE (NEGATIVE); URINE PROTEIN NEGATIVE (NEGATIVE); URINE RBC 6 /uL (0-23.9); URINE UROBILINOGEN 0.2 mg/dL (0.2-1.0); URINE WBC 69 /uL (0-25.8)
[2024-10-06 16:10] LABS: ALBUMIN 4.3 g/dl (3.4-5.0); BLOOD UREA NITROGEN 10.1 mg/dL (7-18); CALCIUM 9.7 mg/dL (8.5-10.1)
[2024-10-06 16:13] LABS: CREATININE 0.5 mg/dL (0.55-1.3)
[2024-10-06 16:14] LABS: BILIRUBIN,TOTAL 0.7 mg/dL (0.2-1); TOT PROT 7.6 g/dl (6.4-8.2)
[2024-10-06] MEDS ORDERED: SULFAMETHOXAZOLE/TRIMETHOPRIM 800MG/160MG D.S. TABLET ONE (18:50)
[2024-10-06] MEDS: SULFAMETHOXAZOLE/TRIMETHOPRIM 800MG/160MG D.S. TABLET PO ONE (18:52)
[2024-10-06 19:47] VITALS: BP 111/76; PULSE 67; RESP 16
== END 2024-10-06 19:48 | disposition home or self-care (01) ==
LOC: JER 12:41
DX: R10.11 Right upper quadrant pain (principal); R10.31 Right lower quadrant pain; R50.9 Fever, unspecified
CPT/HCPCS: 36415; 74177-TC; 76705-TC; 76830-TC; 80053; 81003; 83605; 83690; 84703; 85027; 85610; 85730; 86140; 86850; 86900; 86901; 99285-25; Q9967